=== PATIENT | female | born 2000 | race Caucasian/White ===

== ENCOUNTER 2018-04-10 20:27 | Emergency (ER) | payer MEDICAID, SELFPAY ==
[2018-04-10 20:33] VITALS: BP 106/96; PULSE 106; RESP 18; TEMP 36.8; O2SAT 98
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
[2018-04-10] MEDS: Acetaminophen 500 MG TAB 1000 MG PO (20:54)
[2018-04-10] MEDS: Ibuprofen 600 MG TAB PO (20:55)
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
== END 2018-04-10 21:42 | disposition home or self-care (01) ==
LOC: ER 21:45
PROVIDERS: Emergency Provider Physician Assistant; PCP Pediatrics
DX: S06.0X0A Concussion without loss of consciousness, initial encounter (principal); W21.09XA Struck by other hit or thrown ball, initial encounter; Y93.29 Activity, other involving ice and snow
CPT/HCPCS: 99282; 99283

== ENCOUNTER 2018-10-10 21:31 | Emergency (ER) | payer SELFPAY ==
[2018-10-10 21:42] VITALS: BP 122/80; PULSE 98; RESP 18; TEMP 36.4; O2SAT 100
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
[2018-10-10 22:23] VITALS: BP 119/67; PULSE 80; RESP 16; O2SAT 98
== END 2018-10-10 22:27 | disposition home or self-care (01) ==
PROVIDERS: Emergency Provider Nurse Practitioner Family; PCP Pediatrics
DX: S81.012D Laceration without foreign body, left knee, subsequent encounter (principal); X58.XXXD Exposure to other specified factors, subsequent encounter